=== PATIENT | female | born 1935 | race Caucasian/White ===

== ENCOUNTER → 2023-02-03 | Outpatient (CLI) | payer MEDICARE, OTHER | LOC: ORTHO 13:21 | PROVIDERS: ATTEND Orthopaedic Surgery | DX: S42.252A Displaced fracture of greater tuberosity of left humerus, initial encounter for closed fracture (principal); S43.085A Other dislocation of left shoulder joint, initial encounter; X58.XXXA Exposure to other specified factors, initial encounter | CPT/HCPCS: 99203 ==

== ENCOUNTER → 2023-02-17 | Outpatient (CLI) | payer MEDICARE, OTHER ==
--- NOTE | 2023-02-17 17:25 | Diagnostic Imaging Report ---
Shoulder, left, 2 views INDICATION: Fracture follow-up. COMPARISON: 01/29/2023. TECHNIQUE: 2 views of the left shoulder. FINDINGS: There is an avulsion fracture of the greater tuberosity which has approximately 5 mm of elevation above the humeral head. Glenohumeral joint is normal alignment. No Hill-Sachs fracture is seen. No osseous Bankart. Old healed fracture of the distal clavicle. AC joint remains in normal alignment. IMPRESSION: Mildly displaced avulsion fracture of greater tuberosity is in similar alignment to the postreduction films provided. Dictated by: Dictated on workstation # [id number]
== END ==
LOC: ORTHO 10:28
PROVIDERS: ATTEND Orthopaedic Surgery
DX: S42.252D Displaced fracture of greater tuberosity of left humerus, subsequent encounter for fracture with routine healing (principal); X58.XXXD Exposure to other specified factors, subsequent encounter
CPT/HCPCS: 73030; G0463; 99213

== ENCOUNTER → 2023-03-22 | Outpatient (CLI) | payer MEDICARE, OTHER ==
--- NOTE | 2023-03-22 19:49 | Diagnostic Imaging Report ---
INDICATION: Fracture follow-up. COMPARED with 02/17/2023. FINDINGS: Fracture of the greater tuberosity of the humeral head is displaced posteriorly seen best in the scapular Y-view unchanged from prior. No new bony injury. Old healed deformity to the distal left clavicle stable. No acute appearing abnormality. IMPRESSION: Greater tuberosity fracture unchanged. Old healed distal clavicular injury. Arthritis with no new abnormality or acute appearing pathology Dictated by: Dictated on workstation # [id number]
== END ==
LOC: ORTHO 10:49
PROVIDERS: ATTEND Orthopaedic Surgery
DX: S42.252D Displaced fracture of greater tuberosity of left humerus, subsequent encounter for fracture with routine healing (principal); M19.012 Primary osteoarthritis, left shoulder; X58.XXXD Exposure to other specified factors, subsequent encounter; Z87.828 Personal history of other (healed) physical injury and trauma
CPT/HCPCS: 73030; G0463; 99213

== ENCOUNTER → 2023-04-21 | Outpatient (CLI) | payer MEDICARE, OTHER | LOC: ORTHO 08:42 | PROVIDERS: ATTEND Orthopaedic Surgery | DX: S42.252D Displaced fracture of greater tuberosity of left humerus, subsequent encounter for fracture with routine healing (principal); X58.XXXD Exposure to other specified factors, subsequent encounter | CPT/HCPCS: 99213 ==

== ENCOUNTER → 2023-05-25 | Outpatient (CLI) | payer MEDICARE, OTHER | LOC: ORTHO 10:41 | PROVIDERS: ATTEND Orthopaedic Surgery | DX: S43.015D Anterior dislocation of left humerus, subsequent encounter (principal); X58.XXXD Exposure to other specified factors, subsequent encounter | CPT/HCPCS: 99213 ==